=== PATIENT | female | born 1935 | race Hispanic/Latino ===

== ENCOUNTER 2018-05-14 11:35 | Observation (INO) | payer MEDICARE ==
[2018-05-14 11:37] VITALS: BMI 23.8
--- NOTE | 2018-05-14 12:04 | ED PDOC ---
Arrival/HPI - General Chief Complaint: Chest Pain Time Seen by Provider: 05/14/18 11:47 Historian: Patient - History of Present Illness Narrative History of Present Illness (Text): 05/14/18 12:03 A 82 year old female, whose past medical history includes CAD and AZ x 2, DNR, daughter and granddaughter translate in [place]ian. presents to the emergency department complaining of chest pain and shortness of breath since last night. Per family, they carried patient upstairs, and she complained of pain. Deny dropping patient at any point while carrying her. They believe she may have possibly injured herself, however daughter and granddaughter are uncertain. Patient denies any other complaints at this time. Denies history of smoking or alcohol consumption. PMD: Dr. Alves Associated Symptoms (Text): 05/14/18 13:25 Daughter translates and reports right-sided chest pain and shortness of breath since last night. They carried the patient upstairs and the patient began to co mplain of pain and shortness of breath afterwards. Daughter and granddaughter deny any injury. the patient speaks [place]ian and the daughter and granddaughter translate. Past Medical History - Provider Review Nursing Documentation Reviewed: Yes - Infectious Disease Hx of Infectious Diseases: None - Tetanus Immunization Tetanus Immunization: Unknown - Reproductive Menopause: Yes - Cardiac Hx AZ: Yes Hx Hypertension: Yes - Pulmonary Hx Respiratory Disorders: No - Neurological Hx Neurological Disorder: No - HEENT Hx HEENT Disorder: No - Renal Hx Renal Disorder: No - Endocrine/Metabolic Hx Hypothyroidism: Yes - Hematological/Oncological Hx Blood Disorders: No - Integumentary Hx Dermatological Disorder: No - Musculoskeletal/Rheumatological Hx Arthritis: Yes - Gastrointestinal Hx Gastroesophageal Reflux: Yes - Genitourinary/Gynecological Hx Genitourinary Disorders: No - Psychiatric Hx Psychophysiologic Disorder: No Hx Substance Use: No - Suicidal Assessment Feels Threatened In Home Enviroment: No Family/Social History - Physician Review Nursing Documentation Reviewed: Yes Family/Social History: No Known Family HX Smoking Status: Never Smoked Hx Alcohol Use: No Hx Substance Use: No Hx Substance Use Treatment: No Allergies/Home Meds Allergies/Adverse Reactions: Allergies codeine Allergy (Verified 05/14/18 11:41) RASH Penicillins Allergy (Verified 05/14/18 11:41) RASH Home Medications: Home Meds Medication Instructions Recorded Confirmed Carvedilol [Coreg] 3.125 mg PO DAILY 05/14/18 05/14/18 Cyanocobalamin [Vitamin B12 1000 1,000 mcg PO DAILY 05/14/18 05/14/18 mcg Tab] Docusate [Colace] 100 mg PO DAILY 05/14/18 05/14/18 Lanzoprazol 30 mg PO DAILY 05/14/18 Levothyroxine [Levoxyl] 0.15 mg PO DAILY 05/14/18 05/14/18 Simvastatin 10 mg PO DAILY 05/14/18 05/14/18 Review of Systems - Physician Review All systems were reviewed & negative as marked: Yes - Review of Systems Constitutional: Fatigue. absent: Fevers Respiratory: SOB. absent: Cough Cardiovascular: Chest Pain. absent: Palpitations, Syncope Gastrointestinal: Constipation. absent: Abdominal Pain, Diarrhea, Nausea, Vomiting Neurological: absent: Headache, Dizziness Physical Exam Temperature: Afebrile Blood Pressure: Normal Pulse: Regular Respiratory Rate: Normal Appearance: Positive for: Well-Appearing, Non-Toxic, Uncomfortable Pain Distress: Mild Mental Status: Positive for: other (Awake alert and uncomfortable) - Systems Exam Head: Present: Atraumatic, Normocephalic Pupils: Present: PERRL Extroacular Muscles: Present: EOMI Conjunctiva: Present: Normal Mouth: Present: Moist Mucous Membranes Neck: Present: Normal Range of Motion Respiratory/Chest: Present: Clear to Auscultation, Good Air Exchange, Decreased Breath Sounds, Tender to Palpation (Right-sided chest wall tenderness). No: Respiratory Distress, Accessory Muscle Use Cardiovascular: Present: Regular Rate and Rhythm, Normal S1, S2. No: Murmurs Abdomen: Present: Other (right anterior lateral ribs tenderness). No: Tenderness, Distention, Peritoneal Signs, Rebound, Guarding Back: Present: Normal Inspection Upper Extremity: Present: Normal Inspection. No: Cyanosis, Edema Lower Extremity: Present: Normal Inspection. No: Edema Neurological: Present: GCS=15, CN II-XII Intact, Speech Normal, Motor Func Grossly Intact Skin: Present: Warm, Dry, Normal Color. No: Rashes Psychiatric: Present: Alert, Oriented x 3, Normal Insight, Normal Concentration Medical Decision Making ED Course and Treatment: 05/14/18 12:10 Impression: 82 year old female with chest pain and shortness of breath Plan: -- EKG -- Aspirin -- Toradol -- Chest X-ray -- Labs -- Reassess and disposition Progress Notes: 05/14/18 13:27 EKG shows normal sinus rhythm with his poor R waves and a nonspecific intraventricular conduction delay and no acute ST or T wave changes. 05/14/18 13:27 And , the radiologist, called and reported that the patient had free air under the diaphragm. She requested a stat CT scan of the abdomen and pelvis. Stat CT scan of the abdomen and pelvis was ordered and read by , but there was no free air on the CT scan. 05/14/18 13:54 Family reports that the chest pain has improved post aspirin and Toradol. She only has pain with movement at this time. 05/14/18 14:01 Discussed in detail with Dr.E Alves who will place on a telemetry observation bed and consult with . I am unsure if this represents musculoskeletal chest pain or cardiac chest pain. Very difficult to assess with the language barrier. - RAD Interpretation Radiology Orders: 05/14/18 11:58 CHEST PORTABLE [RAD] Stat - Medication Orders Current Medication Orders: Aspirin (Aspirin) 325 mg PO STAT STA Stop: 05/14/18 11:57 Ketorolac Tromethamine (Toradol) 15 mg IVP ONCE ONE Stop: 05/14/18 11:59 - Scribe Statement The provider has reviewed the documentation as recorded by the Emiliano Mckinney Provider Scribe Attestation: All medical record entries made by the Scribe were at my direction and personall y dictated by me. I have reviewed the chart and agree that the record accurately reflects my personal performance of the history, physical exam, medical decision making, and the department course for this patient. I have also personally directed, reviewed, and agree with the discharge instructions and disposition. Disposition/Present on Arrival - Present on Arrival Any Indicators Present on Arrival: No History of DVT/PE: No History of Uncontrolled Diabetes: No Urinary Catheter: No History of Decub. Ulcer: No History Surgical Site Infection Following: None - Disposition Have Diagnosis and Disposition been Completed?: Yes Diagnosis: Chest pain, Dyspnea Disposition: HOSPITALIZED Disposition Time: 14:02 Patient Plan: Observation, Telemetry Patient Problems: Current Active Problems Problem Status Onset Chest pain Acute Dyspnea Acute Condition: FAIR
--- NOTE | 2018-05-14 12:39 | RAD ---
HISTORY: cp COMPARISON: None available. TECHNIQUE: Chest, one view. FINDINGS: Examination limited by habitus and hypoinflation. LUNGS: Discoid atelectasis, bilateral lung bases. PLEURA: No significant pleural effusion identified. No definite pneumothorax . CARDIOVASCULAR: Cardiomegaly. Ectatic aorta. Atherosclerotic calcifications. OSSEOUS STRUCTURES: No acute osseous abnormality identified. VISUALIZED UPPER ABDOMEN: Extensive lucency beneath the left hemidiaphragm consistent with free air; correlate for perforated viscus. OTHER FINDINGS: None. IMPRESSION: Extensive lucency beneath the left hemidiaphragm consistent with free air; correlate for perforated viscus. Discoid atelectasis bilateral lung bases. Findings discussed with Dr. Wilson on 05/14/18 at 12:33 p.m.
[2018-05-14 12:46] LABS: BASO # 0.01 K/mm3 (0.0-2.0); BASO % 0.2 % (0.0-3.0); EOS # 0.1 (0.0-0.7); EOS % 1.9 % (1.5-5.0); HEMOGLOBIN 13.3 g/dL (12.0-16.0); LYMPH # 0.9 (1.2-3.4); LYMPH % 19.3 % (22.0-35.0); MEAN CELL VOLUME 110.9 fl (80.0-105.0); MEAN CORPUSCULAR HGB CONC 33.4 g/dl (31.0-37.0); MEAN PLATELET VOLUME 9.7 fl (7.0-11.0); MONO # 0.6 (0.1-0.6); MONO % 11.6 % (1.0-6.0); RBC 3.59 10^6/uL (3.5-6.1); RED CELL DISTRIBUTION WIDTH 12.3 % (11.5-14.5); WHITE BLOOD COUNT 4.8 10^3/uL (4.5-11.0)
[2018-05-14 13:29] LABS: ALB/GLOB RATIO 1.2 (1.1-1.8); ALBUMIN 2.9 g/dL (3.0-4.8); ALT/SGPT 22 U/L (7-56); AST/SGOT 35 U/L (14-36); BLOOD UREA NITROGEN 17 mg/dL (7-21); CALCIUM 7.9 mg/dL (8.4-10.5); GFR NON-AFRICAN AMERICAN > 60
[2018-05-14 13:41] LABS: B-TYPE NATRIURETIC PEPTIDE 357 pg/mL (0-450); TROPONIN I < 0.01 ng/mL
--- NOTE | 2018-05-14 13:45 | CT ---
PROCEDURE: CT Abdomen and Pelvis without Oral or IV contrast. HISTORY: free air COMPARISON: Chest x-ray performed earlier the same day. TECHNIQUE: Contiguous axial images of the abdomen and pelvis. No oral or IV contrast administered. Coronal and Sagittal reformats generated and reviewed. Radiation dose: Total exam DLP = 565.19 mGy-cm. This CT exam was performed using one or more of the following dose reduction techniques: Automated exposure control, adjustment of the mA and/or kV according to patient size, and/or use of iterative reconstruction technique. FINDINGS: There is limited evaluation of the solid organs without the administration of IV contrast. LOWER THORAX: Bibasilar scarring and atelectasis. No visible pleural effusion or pneumothorax. LIVER: Unremarkable unenhanced appearance. GALLBLADDER AND BILE DUCTS: Contracted state of gallbladder. PANCREAS: Unremarkable unenhanced appearance. SPLEEN: Unremarkable unenhanced appearance. ADRENALS: Bilateral adrenal gland hypertrophy. KIDNEYS AND URETERS: No hydronephrosis or obstructing renal calculus. BLADDER: The urinary bladder appears unremarkable. REPRODUCTIVE: Uterus is not well seen and appears atrophic. APPENDIX: The appendix appears within normal limits of caliber. No secondary signs of acute appendicitis. BOWEL: The stomach is distended with air and fluid. Dependent oral contrast versus calcification at the gastric fundus. Lack of oral contrast limits evaluation for bowel pathology. The bowel loops appear within normal limits of caliber without evidence of intestinal obstruction. Moderate constipation. PERITONEUM: No significant free fluid. No definite free air. LYMPH NODES: No bulky lymphadenopathy identified. VASCULATURE: Atherosclerotic calcifications aorta. No aortic aneurysm. BONES: Osseous demineralization. Multilevel degenerative changes. Loss of height of several vertebral body levels consistent with age indeterminate compression fractures. OTHER FINDINGS: None. IMPRESSION: No definite free air. Moderate constipation. The stomach is distended with air and fluid. Dependent oral contrast versus calcification at the gastric fundus. Bilateral adrenal gland hypertrophy. Bibasilar scarring and atelectasis. Additional incidental findings as above.
--- NOTE | 2018-05-14 14:35 | CARD ---
APPROVED REPORT Date of service: 05/14/2018 EKG Measurement Heart [id number] <Conclusion> Normal sinus rhythm Left axis deviation Septal infarct, age undetermined Abnormal ECG
[2018-05-14] MEDS ORDERED: Magnesium Hydroxide Susp 30 ml UD PO STA (14:37)
[2018-05-14] MEDS ORDERED: Enoxaparin 60 mg Syringe SC STA (18:34)
[2018-05-14 19:15] LABS: HDL CHOLESTEROL 41 mg/dL (29-60)
[2018-05-14 19:26] LABS: TROPONIN I < 0.01 ng/mL
[2018-05-14 19:28] LABS: LDL CHOLESTEROL < 30 mg/dL (0-129)
[2018-05-15 08:19] LABS: ALB/GLOB RATIO 1.1 (1.1-1.8); ALBUMIN 2.9 g/dL (3.0-4.8); ALT/SGPT 23 U/L (7-56); AST/SGOT 36 U/L (14-36); BLOOD UREA NITROGEN 15 mg/dL (7-21); CALCIUM 7.7 mg/dL (8.4-10.5); GFR NON-AFRICAN AMERICAN > 60
[2018-05-15 08:22] LABS: TROPONIN I < 0.01 ng/mL
[2018-05-15] MEDS: Sodium Chloride 0.9% 1,000 ML IV SCH ×2 (09:08→21:42)
[2018-05-15] MEDS: Enoxaparin 30 mg Syringe SC SCH (09:09)
[2018-05-15] MEDS ORDERED: POLYETHYLENE GLYCOL 3350 17 GM/Dose PACKET PO ONE (10:33)
[2018-05-15] MEDS: Pantoprazole 40 mg EC Tab PO SCH (11:04)
[2018-05-15] MEDS: Levothyroxine 150 MCG TAB PO SCH (11:04)
[2018-05-15] MEDS: Nitroglycerin 2% Ointment Foilpak UD TOP SCH ×2 (12:43→17:39)
--- NOTE | 2018-05-15 15:32 | CARD ---
APPROVED REPORT Date of service: 05/15/2018 EXAM: Two-dimensional and M-mode echocardiogram with Doppler and color Doppler. INDICATION Chest Pain 2D DIMENSIONS Left Atrium (2D)3.7 (1.6-4.0cm)IVSd1.2 (0.7-1.1cm) LVDd3.2 (3.9-5.9cm)PWd1.1 (0.7-1.1cm) LVDs2.4 (2.5-4.0cm)FS (%) 24.5 % LVEF (%)49.9 (>50%) M-Mode DIMENSIONS Aortic Root2.60 (2.2-3.7cm)Aortic Cusp Exc.1.70 (1.5-2.0cm) Aortic Valve AoV Peak Qmrjhynf063.0cm/Regina Peak GR.7mmHg Mitral Valve MV E Ondqautq80.7cm/sMV A Essrgimk356.0cm/sE/A ratio0.7 TDI E/Lateral E'0.0E/Medial E'0.0 Tricuspid Valve TR Peak Vuhvojiz751hf/sRAP [id number] Peak Gr.25mmHg [id number] LEFT VENTRICLE The Left Ventricle is mildly dilated. There is borderline concentric left ventricular hypertrophy. Left ventricle ejection fraction is low normal.EF-45-50% There is mild to moderate hypokinesis in the apical anterior wall. Transmitral Doppler flow pattern is Grade III-reversible restrictive diastolic dysfunction. No left ventricle thrombus noted on this study. There is no ventricular septal defect visualized. There is no left ventricular aneurysm. There is no mass noted in the left ventricle. RIGHT VENTRICLE The right ventricle is normal size. There is normal right ventricular wall thickness. The right ventricular systolic function is normal. ATRIA The left atrium is borderline dilated., in long axis. The right atrium size is normal. The interatrial septum is intact with no evidence for an atrial septal defect. AORTIC VALVE The aortic valve is thickened but opens well. There is trace aortic regurgitation. There is no aortic valvular stenosis. There is no aortic valvular vegetation. MITRAL VALVE The mitral valve is thickened but opens well. Mitral regurgitation is mild. There is no mitral valve stenosis. There is no evidence of mitral valve prolapse. TRICUSPID VALVE The tricuspid valve leaflets are thickened , but open well. There is mild tricuspid regurgitation.RVSP-35 mmof hg. There is no tricuspid valve stenosis. There is no tricuspid valve prolapse or vegetation. PULMONIC VALVE The pulmonary valve is normal in structure. There is trace pulmonic valvular regurgitation. There is no pulmonic valvular stenosis. GREAT VESSELS The aortic root is normal in size. The ascending aorta is normal in size. The pulmonary artery is normal. The IVC is normal in size and collapses >50% with inspiration. PERICARDIAL EFFUSION There is no pleural effusion. Trivial PE <Conclusion> The Left Ventricle is mildly dilated. There is borderline concentric left ventricular hypertrophy. Left ventricle ejection fraction is low normal.EF-45-50% There is mild to moderate hypokinesis in the apical anterior wall. There is trace aortic regurgitation. Mitral regurgitation is mild. There is mild tricuspid regurgitation.RVSP-35 mmof hg. There is trace pulmonic valvular regurgitation. The IVC is normal in size and collapses >50% with inspiration. Trivial PE. No Vegetation or thrombus noted.
--- NOTE | 2018-05-15 21:09 | CON ---
DATE: 05/15/2018 CONSULT SERVICE: Cardiology. REASON FOR CONSULTATION: Cardiac evaluation, history of coronary artery disease, history of CA 20 years ago, and admitted with chest pain. BRIEF CLINICAL HISTORY: This is an 82-year-old female with past medical history significant for massive CA 20 years ago, admitted to [facility] and transferred to [facility] where the patient had a stent, since the patient remained stable, and came in yesterday with chest pain, which is very reproducible and severe tenderness on the chest. The patient speaks Georgian, unable to get any history, but information obtained from the daughter and the granddaughter, named Scarlet, which is an RN, her telephone number [phone]. They wanted to be treated the patient medically. The patient is bed bound and wanted to get medical treatment. PAST MEDICAL HISTORY: Significant for coronary artery disease, hypothyroidism, hyperlipidemia, and hypertension. SOCIAL HISTORY: Denies smoking. Denies any history of alcohol abuse. PAST SURGICAL HISTORY: Only procedure she had CA 20 years ago and had two stents in [place] after having massive CA. REVIEW OF SYSTEMS: As per HPI. PHYSICAL EXAMINATION: VITAL SIGNS: As follows; height of the patient 5 feet 2 inches, weight of the patient 108 pounds, and body mass index 19.9 kg/m2. Temperature afebrile, heart rate 74, and blood pressure 129/73. HEENT: PERRLA. Extraocular muscles intact. NECK: Supple. No carotid bruits or thyromegaly. CHEST: Clear to auscultation. HEART: S1 and S2 regular. ABDOMEN: Soft. EXTREMITIES: Clubbing and cyanosis negative. LABORATORY DATA: Blood workup as follows; WBC 4.8, hemoglobin 13.3, hematocrit 39.8, and platelet count 209. Chemistry shows sodium 120, potassium 4.7, chloride 90, carbon dioxide 26, anion gap of 9, BUN 15, and creatinine 0.3. Troponin 0.01 x3 negative. Chest wall is very tender. IMPRESSION AND PLAN: An 82-year-old female with past medical history of hypertension, hyperlipidemia, history of coronary artery disease, status post stent 20 year ago where the patient admitted with myocardial infarction, admitted with chest pain, very tender. So far, no evidence of acute myocardial infarction. Discussed with the patient's daughter and the patient's granddaughter, named Scarlet on telephone number [phone], wanted to be treated medically. Agreed to get an echocardiogram done. We will continue Coreg. We will continue aspirin. Continue deep venous thrombosis prophylaxis enoxaparin and we will agree with Dr. Alves for ibuprofen because of very severe tenderness on the chest. We will follow with you. Further recommendation depending upon the hospital course. We will get lipid profile, thyroid stimulating hormone, hemoglobin A1c as well added on the lab today. Further recommendations will be made upon the patient's hospital course. If the blood pressure can be tolerated, we will put low dose of nitroglycerin that is Imdur long-acting nitrate Imdur. Admitting the patient's EKG shows normal sinus, left axis deviation, poor RR progression consistent with septal myocardial infarction of undetermined age, but no acute ST-T changes noted. We will change aspirin to baby aspirin everyday and deep venous thrombosis prophylaxis 30 mg of atorvastatin. Continue Coreg 3.125 mg, atorvastatin 80 mg with half an inch of paste and they will start Imdur 30 mg from tomorrow. We will holding parameters. If the patient tolerates nitroglycerin paste, we will start Imdur from tomorrow. Follow up mag phosphate in the morning and BMP. We will change the IV fluid to the normal saline and monitor electrolytes in the morning. Thank you Dr. Alves for providing us the opportunity in taking care of the patient, Sandy Yan. Charlene Umana MD
[2018-05-16 07:11] VITALS: RESP 20; O2SAT 98
[2018-05-16 07:15] LABS: HEMOGLOBIN 11.8 g/dL (12.0-16.0); MEAN CORPUSCULAR HEMOGLOBIN 36.8 pg (25.0-35.0); MEAN CORPUSCULAR HGB CONC 33.4 g/dl (31.0-37.0); MEAN PLATELET VOLUME 9.4 fl (7.0-11.0); RBC 3.21 10^6/uL (3.5-6.1); RED CELL DISTRIBUTION WIDTH 12.3 % (11.5-14.5); WHITE BLOOD COUNT 2.8 10^3/uL (4.5-11.0)
[2018-05-16 07:38] LABS: ALBUMIN 2.5 g/dL (3.0-4.8); ALT/SGPT 27 U/L (7-56); AST/SGOT 35 U/L (14-36); BLOOD UREA NITROGEN 12 mg/dL (7-21); CALCIUM 7.2 mg/dL (8.4-10.5); GFR NON-AFRICAN AMERICAN > 60
--- NOTE | 2018-05-16 09:27 | RAD ---
Date of service: 05/15/2018 PROCEDURE: Radiographs of the Chest and Right Ribs. HISTORY: pain COMPARISON: None available. TECHNIQUE: Frontal radiograph of the chest and multiple oblique radiographs of the right ribs were obtained. FINDINGS: RIGHT RIBS: No rib fracture identified. LUNGS: Linear scar/atelectasis at both lung bases. No infiltrate. PLEURA: No pneumothorax or pleural fluid. CARDIOVASCULAR: Normal cardiac size. No pulmonary vascular congestion. No aortic atherosclerotic calcification present OTHER FINDINGS: Chronic right rotator cuff insufficiency with superior subluxation of the humeral head and remodeling of the underside of the right acromion. IMPRESSION: No evidence of right rib fracture. Bibasilar linear scar/atelectasis.
[2018-05-16] MEDS: Enoxaparin 30 mg Syringe SC SCH (09:44)
[2018-05-16] MEDS: Pantoprazole 40 mg EC Tab PO SCH (09:44)
[2018-05-16] MEDS: Levothyroxine 150 MCG TAB PO SCH (09:45)
[2018-05-16] MEDS: Sodium Chloride 0.9% 1,000 ML IV SCH (09:45)
[2018-05-16 13:23] VITALS: BP 96/60; PULSE 77; TEMP 97.9
--- NOTE | 2018-05-16 15:47 | PN ---
DATE: 05/16/2018 REASON FOR CONSULTATION AND FOLLOWUP: Cardiac evaluation, history of coronary artery disease, history of NV, admitted with chest pain; musculoskeletal. SUBJECTIVE: The patient denies any chest pain, shortness of breath, or any palpitations. PHYSICAL EXAMINATION: GENERAL: Not in apparent distress. VITAL SIGNS: Temperature afebrile, heart rate 68, blood pressure 144/77. HEENT: PERRLA. Extraocular muscles intact. NECK: Supple. No carotid bruits. No thyromegaly. CHEST: Clear to auscultation. HEART: S1 and S2 regular. ABDOMEN: Soft. EXTREMITIES: Clubbing and cyanosis, negative. LABORATORY DATA: Blood workup as follows. WBC 2.8, hemoglobin 11.8, hematocrit 35.3, platelet count 173. Chemistries show sodium 127, potassium 4, chloride 101, carbon dioxide 23, anion gap of 18, BUN 12 and creatinine 0.2. Total protein 4.9, albumin 2.5, albumin-globulin ratio 1. IMPRESSION: An 82-year-old female with past medical history significant for coronary artery disease status post massive myocardial infarction, status post primary angioplasty 20 years ago at [facility]. This time came in with chest pain, atypical with tenderness. So far no evidence of acute myocardial infarction. History of anemia, appears to be pancytopenia, leukopenia and platelet count of 173, mildly anemic. The patient so far has no evidence of acute myocardial infarction. The patient yesterday had echocardiography done that revealed ejection 45% to 50%, mild to moderate hypokinesis apical and anterior wall consistent with previous myocardial infarction. Mild mitral regurgitation, mild tricuspid regurgitation. Discussed with the daughter and granddaughter; granddaughter is a nurse named Scarlet wanted it to be treated medically. RECOMMENDATION: Continue Coreg 3.125 mg. Will start Imdur. Continue DVT prophylaxis. Continue baby aspirin. We will discontinue telemetry. Medical treatment; so far no evidence of acute NV. Agree with Dr. Alves to continue NSAID. Chest pain significantly improved with NSAID. Thank you Dr. Alves for providing us the opportunity in taking care of patient Sandy Yan. Charlene Umana MD
== END 2018-05-16 13:22 | disposition home or self-care (01) ==
LOC: ED 11:35 → ERH 14:32 → 2RSO 16:50
PROVIDERS: ADMIT Internal Medicine; ATTEND Internal Medicine
DX: R07.89 Other chest pain (principal); I25.10 Atherosclerotic heart disease of native coronary artery without angina pectoris; I25.2 Old myocardial infarction; I10 Essential (primary) hypertension; E78.5 Hyperlipidemia, unspecified; E03.9 Hypothyroidism, unspecified; K21.9 Gastro-esophageal reflux disease without esophagitis; Z66 Do not resuscitate; Z74.01 Bed confinement status; Z95.5 Presence of coronary angioplasty implant and graft
CPT/HCPCS: 36415; 71045; 71101; 74176; 80053; 80061; 82550; 83036; 83615; 83735; 83880; 84100; 84443; 84484; 85025; 85027; 93005; 93306; 96372; 96374; 99285; G0378; J1650; J1885; J7030

== ENCOUNTER 2018-07-20 18:57 | Observation (INO) | payer MEDICARE ==
[2018-07-20 18:57] VITALS: BMI 23.8
[2018-07-20] MEDS ORDERED: Sodium Chloride 0.9% 1,000 ML IV STA (19:29)
--- NOTE | 2018-07-20 19:38 | ED PDOC ---
Arrival/HPI - General Chief Complaint: Abdominal Pain Time Seen by Provider: 07/20/18 19:20 Historian: Patient, Family (daughter) - History of Present Illness Narrative History of Present Illness (Text): 07/20/18 19:20 Sandy Yan is an 82 year old female, with a past medical history of CAD and CT x 2, brought to the ED by EMS for diffuse abdominal pain. Per daughter, patient was home by herself and pressed her life alert. Daughter informs patient frequently complains of abdominal pain but notes today is worse. Per daughter, patient has multiple bowel movements a day and appreciates no change to bowel habits. Patient denies fevers, chills, headache, dizziness, nausea, vomiting, diarrhea, dysuria, hematuria, bowel / urinary incontinence, or any other complaints. Time/Duration: Prior to Arrival Symptom Onset: Sudden Symptom Course: Unchanged Activities at Onset: Light Context: Home Past Medical History - Provider Review Nursing Documentation Reviewed: Yes - Infectious Disease Hx of Infectious Diseases: None - Tetanus Immunization Tetanus Immunization: Unknown - Cardiac Hx Cardiac Disorders: Yes Hx CT: Yes (x3) Hx Hypertension: Yes - Pulmonary Hx Respiratory Disorders: No - Neurological Hx Neurological Disorder: Yes Hx Dementia: Yes - HEENT Hx HEENT Disorder: No - Renal Hx Renal Disorder: No - Endocrine/Metabolic Hx Endocrine Disorders: Yes Hx Hypothyroidism: Yes - Hematological/Oncological Hx Blood Disorders: No - Integumentary Hx Dermatological Disorder: No - Musculoskeletal/Rheumatological Hx Falls: No - Gastrointestinal Hx Gastrointestinal Disorders: Yes Hx Gastroesophageal Reflux: Yes - Genitourinary/Gynecological Hx Genitourinary Disorders: No - Psychiatric Hx Psychophysiologic Disorder: No Hx Substance Use: No - Surgical History Hx Coronary Stent: Yes - Suicidal Assessment Feels Threatened In Home Enviroment: No Family/Social History - Physician Review Nursing Documentation Reviewed: Yes Family/Social History: Unknown Family HX Smoking Status: Never Smoked Hx Alcohol Use: No Hx Substance Use: No Hx Substance Use Treatment: No Allergies/Home Meds Allergies/Adverse Reactions: Allergies codeine Allergy (Verified 07/21/18 00:46) RASH Penicillins Allergy (Verified 07/21/18 00:46) RASH Home Medications: Home Meds Medication Instructions Recorded Confirmed Carvedilol [Coreg] 3.125 mg PO DAILY 05/14/18 07/21/18 Cyanocobalamin [Vitamin B12 1000 1,000 mcg PO DAILY 05/14/18 07/21/18 mcg Tab] Docusate [Colace] 100 mg PO DAILY 05/14/18 07/21/18 Lanzoprazol 30 mg PO DAILY 05/14/18 07/21/18 Levothyroxine [Synthroid] 0.15 mg PO DAILY 05/14/18 07/21/18 Simvastatin 10 mg PO DAILY 05/14/18 07/21/18 Review of Systems - Physician Review All systems were reviewed & negative as marked: Yes - Review of Systems Constitutional: absent: Fevers, Other (chills) Gastrointestinal: Abdominal Pain (diffuse). absent: Diarrhea, Nausea, Vomiting, Other (bowel incontinence, changes in bowel habits) Genitourinary Female: absent: Dysuria, Hematuria, Other (urinary incontinence) Neurological: absent: Headache, Dizziness Physical Exam Vital Signs Reviewed: Yes Vital Signs Temp Pulse Resp BP Pulse Ox 07/20/18 19:19 97.5 F L 99 H 22 111/64 97 Temperature: Afebrile Blood Pressure: Normal Pulse: Tachycardic Respiratory Rate: Normal Appearance: Positive for: Well-Appearing, Non-Toxic, Comfortable, Other (eyes closed but opens eyes when voicing answers to questions) Pain Distress: None Mental Status: Positive for: Alert and Oriented X 3 - Systems Exam Head: Present: Atraumatic, Normocephalic Pupils: Present: PERRL Extroacular Muscles: Present: EOMI Conjunctiva: Present: Normal Mouth: Present: Moist Mucous Membranes Neck: Present: Normal Range of Motion Respiratory/Chest: Present: Clear to Auscultation, Good Air Exchange. No: Respiratory Distress, Accessory Muscle Use, Wheezes, Rales, Rhonchi Cardiovascular: Present: Regular Rate and Rhythm, Normal S1, S2. No: Murmurs, Rub, Gallop Abdomen: Present: Tenderness (diffuse), Distention (slightly distended, but soft), Normal Bowel Sounds. No: Peritoneal Signs, Rebound, Guarding Back: Present: Normal Inspection Upper Extremity: Present: Normal Inspection, Normal ROM, Neurovascularly Intact. No: Cyanosis, Edema Lower Extremity: Present: Normal Inspection, Normal ROM, Neurovascularly Intact. No: Edema Neurological: Present: GCS=15, CN II-XII Intact, Speech Normal Skin: Present: Warm, Dry, Normal Color. No: Rashes Psychiatric: Present: Alert, Oriented x 3, Normal Insight, Normal Concentration Medical Decision Making ED Course and Treatment: 07/20/18 19:20 Impression: Sandy Yan is an 82 year old female, with a past medical history of CAD and CT x 2, brought to the ED by EMS for diffuse abdominal pain. Plan: -- CT Abdomen/Pelvis with IV Contrast -- Labs -- IV Fluids -- Toradol -- Reassess and disposition Prior Visits: Notes and results from previous visits were reviewed. Progress Notes: Patient given toradol for pain. 07/20/18 23:39 Abd/Pelvis CT IMPRESSION: 1. Some of the small bowel loops in the left abdomen appear slightly prominent and fluid-filled with enhancement of the wall measuring up to 3.6 cm. More distal loops appear slightly decompressed. Possible fecalization and some more distal loops. Please correlate for the possibility of early or partial small bowel obstruction or even vascular compromise. 2. Again seen is constipation in the colon, which appears slightly worse currently than on the May study. 3. Bladder is distended. This is more prominent than on the May study. 4. Additional, incidental findings as described above. 5. These findings are being telephoned to the referring clinicians at the time of interpretation. Dictator: David Garcia MD Patient given morphine ivp for continued pain. Lab and CT results discussed with patient and daughter. Amenable to admission for possible early SBO. Case discussed with Dr. Val Alves, patient's PMD. Accepts patient for admission to his service. Would like Dr. Gibbs consulted for GI. - RAD Interpretation Radiology Orders: 07/20/18 19:29 ABD PELVIS PO & IV CONTRAST [CT] Stat - EKG Interpretation EKG Interpretation (Text): 07/20/18 19:18 Reviewed EKG, shows: Sinus Tachycardia at 101 BPM. LAD. Normal Intervals. No ST elevations. Interpreted by ED Physician: Yes Type: 12 lead EKG - Medication Orders Current Medication Orders: Sodium Chloride (Sodium Chloride 0.9%) 1,000 mls @ 999 mls/hr IV .Q1H1M STA Stop: 07/20/18 20:29 Discontinued Medications Ketorolac Tromethamine (Toradol) 30 mg IVP STAT STA Stop: 07/20/18 19:30 - Scribe Statement The provider has reviewed the documentation as recorded by the Scribe Olegario Pina All medical record entries made by the Scribe were at my direction and personally dictated by me. I have reviewed the chart and agree that the record accurately reflects my personal performance of the history, physical exam, medical decision making, and the department course for this patient. I have also personally directed, reviewed, and agree with the discharge instructions and disposition. Disposition/Present on Arrival - Present on Arrival Any Indicators Present on Arrival: No History of DVT/PE: No History of Uncontrolled Diabetes: No Urinary Catheter: No History of Decub. Ulcer: No History Surgical Site Infection Following: None - Disposition Have Diagnosis and Disposition been Completed?: Yes Diagnosis: Abdominal pain, Small bowel obstruction Disposition: HOSPITALIZED Disposition Time: 00:00 Condition: STABLE
[2018-07-20 20:06] LABS: BASO # 0.02 K/mm3 (0.0-2.0); BASO % 0.4 % (0.0-3.0); EOS % 0.8 % (1.5-5.0); LYMPH # 1.4 (1.2-3.4); LYMPH % 27.9 % (22.0-35.0); MEAN CELL VOLUME 112.6 fl (80.0-105.0); MEAN CORPUSCULAR HEMOGLOBIN 38.5 pg (25.0-35.0); MEAN CORPUSCULAR HGB CONC 34.1 g/dl (31.0-37.0); MEAN PLATELET VOLUME 9.3 fl (7.0-11.0); MONO # 0.6 (0.1-0.6); MONO % 13.1 % (1.0-6.0); RBC 3.64 10^6/uL (3.5-6.1); RED CELL DISTRIBUTION WIDTH 12.8 % (11.5-14.5); WHITE BLOOD COUNT 4.9 10^3/uL (4.5-11.0)
[2018-07-20 20:18] LABS: ALB/GLOB RATIO 1.1 (1.1-1.8); ALBUMIN 2.9 g/dL (3.0-4.8); ALT/SGPT 28 U/L (7-56); AST/SGOT 38 U/L (14-36); BLOOD UREA NITROGEN 14 mg/dL (7-21); CALCIUM 7.8 mg/dL (8.4-10.5); GFR NON-AFRICAN AMERICAN > 60; LIPASE 140 U/L (23-300)
[2018-07-20] MEDS ORDERED: Iohexol 240 (50 ml) ONE (20:26)
[2018-07-20] MEDS ORDERED: Iohexol 350 MG/100 ML VIAL ONE (22:22)
[2018-07-21] MEDS ORDERED: Morphine 2 mg/ml ISec ONE (00:11)
[2018-07-21] MEDS ORDERED: Morphine 2 mg/ml ISec IVP STA (00:17)
--- NOTE | 2018-07-21 07:54 | CP.PCM.CON ---
<Titus Baxter - Last Filed: 07/21/18 18:54> History of Present Illness - History of Present Illness History of Present Illness: Titus Baxter Internal Medicine Resident- Consult Note on Behalf of Dr. Gibbs Subjective: CC: abdominal pain HPI: Patient is a 82 year old female with a past medical history of CAD and ID x 2, hypothyroidism, hypertension, hyperlipidemia who was admitted for evaluation and treatment of abdominal pain. GI team was consulted for management/recs on potential SBO. Patient seen and examined at bedside. States that she is no longer experiencing abdominal pain. Admits to constipation with hard bowel movements every 2-3 days. Denies nausea, vomiting, diarrhea, blood in stools, black stools, and change in caliber/consistency of stools. Further denies fever, chills, chest pain, SOB. 12 Point ROS negative except as indicated above PMHx: CAD and ID x 2, hypothyroidism, hypertension, hyperlipidemia PSHx: PCI two LAD stents Allergies: codeine, PCN Social Hx: denies tobacco use, denies ETOH use, denies illicit drug use Family Hx: denies Medications- please see MAR Physical Examination: - Constitutional Appears: Well, Non-toxic, No Acute Distress - Head Exam Head Exam: NORMAL INSPECTION, NORMOCEPHALIC - Eye Exam Eye Exam: EOMI, Normal appearance - ENT Exam ENT Exam: Mucous Membranes Moist, Normal Exam - Neck Exam Neck exam: Positive for: Normal Inspection - Respiratory Exam Respiratory Exam: Clear to Auscultation Bilateral, NORMAL BREATHING PATTERN - Cardiovascular Exam Cardiovascular Exam: +S1, +S2, Systolic Murmur - GI/Abdominal Exam GI & Abdominal Exam: soft, nontender, no guarding, no rebound tenderness - Extremities Exam Extremities exam: Positive for: normal inspection. Negative for: calf tenderness, pedal edema - Neurological Exam Neurological exam: Alert, awake, responds to verbal stimuli, follows commands - Psychiatric Exam Psychiatric exam: Normal Affect, Normal Mood - Skin Skin Exam: Dry, Intact, Warm Assessment and Plan: Patient is a 82 year old female with a past medical history of CAD, ID x 2, hypothyroidism, hypertension, hyperlipidemia who was admitted for evaluation and treatment of abdominal pain. Abdominal pain- Constipation, SBO Hx of CAD ID x2 Hypothyroidism Hypertension Hyperlipidemia 07/20/2018 Abdomen/pelvis CT 1. Some of the small bowel loops in the left abdomen appear slightly prominent and fluid-filled with enhancement of the wall measuring up to 3.6 cm. More distal loops appear slightly decompressed. Possible fecalization and some more distal loops. Please correlate for the possibility of early or partial small bowel obstruction or even vascular compromise. 2. Again seen is constipation in the colon, which appears slightly worse current ly than on the May study. 3. Bladder is distended. This is more prominent than on the May study. - continue liquid diet - continue IVF NS @100cc/hr - continue colace - continue protonix - recommend general surgery consult for SBO, started patient on dolcolax and fleet enema x 1 - if not bowel movement depsite current bowel regimen recommend starting miralax Patient seen, case reviewed with, and plan approved by attending physician, Dr. Gibbs Past Patient History - Infectious Disease Hx of Infectious Diseases: None - Tetanus Immunizations Tetanus Immunization: Unknown - Past Social History Smoking Status: Never Smoked - CARDIAC Hx Cardiac Disorders: Yes Hx Heart Attack: Yes (x3) Hx Hypertension: Yes - PULMONARY Hx Respiratory Disorders: No - NEUROLOGICAL Hx Neurological Disorder: Yes Hx Dementia: Yes - HEENT Hx HEENT Problems: No - RENAL Hx Chronic Kidney Disease: No - ENDOCRINE/METABOLIC Hx Endocrine Disorders: Yes Hx Hypothyroidism: Yes - HEMATOLOGICAL/ONCOLOGICAL Hx Blood Disorders: No - INTEGUMENTARY Hx Dermatological Problems: No - MUSCULOSKELETAL/RHEUMATOLOGICAL Hx Falls: No - GASTROINTESTINAL Hx Gastrointestinal Disorders: Yes Hx Gastroesophageal Reflux: Yes - GENITOURINARY/GYNECOLOGICAL Hx Genitourinary Disorders: No - PSYCHIATRIC Hx Psychophysiologic Disorder: No Hx Substance Use: No - SURGICAL HISTORY Hx Coronary Stent: Yes Meds Allergies/Adverse Reactions: Allergies Allergy/AdvReac Type Severity Reaction Status Date / Time codeine Allergy RASH Verified 07/21/18 00:46 Penicillins Allergy RASH Verified 07/21/18 00:46 Results - Vital Signs Recent Vital Signs: Last Vital Signs Temp 97.5 F L 07/20/18 19:19 Pulse 83 07/21/18 02:23 Resp 18 07/21/18 02:23 BP 124/90 07/21/18 01:24 Pulse Ox 97 07/21/18 01:24 - Labs Result Diagrams: 07/20/18 19:59 07/20/18 19:59 Labs: Laboratory Results - last 24 hr 07/20/18 07/20/18 19:59 19:59 WBC 4.9 D RBC 3.64 Hgb 14.0 D Hct 41.0 MCV 112.6 H MCH 38.5 H MCHC 34.1 RDW 12.8 Plt Count 257 MPV 9.3 Neut % (Auto) 57.8 Lymph % (Auto) 27.9 [place] % (Auto) 13.1 H Eos % (Auto) 0.8 L Baso % (Auto) 0.4 Lymph # (Auto) 1.4 [place] # (Auto) 0.6 Eos # (Auto) 0.0 Baso # (Auto) 0.02 Absolute Neuts (auto) 2.81 Sodium 128 L Potassium 4.6 Chloride 96 L Carbon Dioxide 27 Anion Gap 10 BUN 14 Creatinine 0.4 L Est GFR ( Amer) > 60 Est GFR (Non-Af Amer) > 60 Random Glucose 124 H Calcium 7.8 L Total Bilirubin 0.8 AST 38 H ALT 28 Alkaline Phosphatase 152 H D Total Protein 5.6 L Albumin 2.9 L Globulin 2.7 Albumin/Globulin Ratio 1.1 Lipase 140 <Dayanna Gibbs V - Last Filed: 07/22/18 00:32> Meds - Medications Medications: Current Medications Atorvastatin Calcium (Lipitor) 10 mg PO DIN [facility] Last Admin: 07/21/18 18:54 Dose: 10 mg Bisacodyl (Dulcolax) 10 mg RC DAILY [facility] Last Admin: 07/21/18 18:53 Dose: Not Given Carvedilol (Coreg) 3.125 mg PO DAILY [facility] Last Admin: 07/21/18 10:40 Dose: Not Given Cyanocobalamin (Vitamin B12 1000 Mcg Tab) 1,000 mcg PO DAILY [facility] Last Admin: 07/21/18 10:41 Dose: 1,000 mcg Docusate Sodium (Colace) 100 mg PO DAILY [facility] Last Admin: 07/21/18 10:39 Dose: 100 mg Hydromorphone HCl (Dilaudid) 0.5 mg IVP Q4H PRN PRN Reason: Pain, moderate (4-7) Last Admin: 07/21/18 23:49 Dose: 0.5 mg Sodium Chloride (Sodium Chloride 0.9%) 1,000 mls @ 100 mls/hr IV .Q10H [facility] Last Admin: 07/21/18 18:54 Dose: 100 mls/hr Levothyroxine Sodium (Synthroid) 150 mcg PO DAILY [facility] Last Admin: 07/21/18 10:41 Dose: 150 mcg Pantoprazole Sodium (Protonix Ec Tab) 40 mg PO DAILY [facility] Last Admin: 07/21/18 10:40 Dose: 40 mg Results - Vital Signs Recent Vital Signs: Last Vital Signs Temp 97.6 F 07/21/18 16:33 Pulse 68 07/21/18 16:33 Resp 19 07/21/18 16:33 BP 136/83 07/21/18 16:33 Pulse Ox 97 07/21/18 16:33 - Labs Result Diagrams: 07/20/18 19:59 07/20/18 19:59 Attending/Attestation - Attestation I have personally seen and examined this patient.: Yes I have fully participated in the care of the patient.: Yes I have reviewed all pertinent clinical information: Yes Notes (Text): This patient was seen and evaluated along with the resident earlier. This is an addendum to the GI consultation report dictated by the resident. CT scan was reviewed surgical note was reviewed . Agree with the Fleet Enema and a clinical follow-up 07/22/18 00:30
[2018-07-21] MEDS: HYDROmorphone 0.5 mg/0.5 ml ISec IVP PRN ×3 (08:32→23:49)
[2018-07-21] MEDS: Sodium Chloride 0.9% 1,000 ML IV SCH ×2 (09:01→18:54)
[2018-07-21] MEDS: Pantoprazole 40 mg EC Tab PO SCH (10:40)
[2018-07-21] MEDS: Levothyroxine 150 MCG TAB PO SCH (10:41)
--- NOTE | 2018-07-21 11:05 | CP.PCM.CON ---
History of Present Illness - History of Present Illness History of Present Illness: General Surgery Dr. Awad 82 y/o Scottish-speaking F w/ PMHx CAD, GA, dementia was brought in by EMS c/o abd pain. Pt has Hx of abd pain 2/2 constipation. In ED, pt underwent CTAP which showed continued constipation, slight worse compared to CTAP from 05/2018, w/ dilated loops small bowel and fecalization of distal small bowel 2/2 co nstipation vs possible (p)SBO. Surgery was consulted for possible (p)SBO. Pt seen and examined @bedside. Overnight, pt w/ multiple episodes of crying out. Otherwise no acute events. Pt recently medicated for pain w/ 0.5mg Dilaudid. Pt currently denies F/C, N/V, abd pain. Per nursing, pt has not yet had BM since admission overnight. PMHx: see above, HLD, HTN, hypothyroid, GERD, HH Meds: reviewed in chart ALL: codeine, PCN PSHx: PCI SHx: denies tobacco, EtOH drug use FHx: noncontributory Review of Systems - Review of Systems All systems: reviewed and no additional remarkable complaints except (see HPI) Past Patient History - Infectious Disease Hx of Infectious Diseases: None - Tetanus Immunizations Tetanus Immunization: Unknown - Past Social History Smoking Status: Never Smoked - CARDIAC Hx Cardiac Disorders: Yes Hx Heart Attack: Yes (x3) Hx Hypertension: Yes - PULMONARY Hx Respiratory Disorders: No - NEUROLOGICAL Hx Neurological Disorder: Yes Hx Dementia: Yes - HEENT Hx HEENT Problems: No - RENAL Hx Chronic Kidney Disease: No - ENDOCRINE/METABOLIC Hx Endocrine Disorders: Yes Hx Hypothyroidism: Yes - HEMATOLOGICAL/ONCOLOGICAL Hx Blood Disorders: No - INTEGUMENTARY Hx Dermatological Problems: No - MUSCULOSKELETAL/RHEUMATOLOGICAL Hx Falls: No - GASTROINTESTINAL Hx Gastrointestinal Disorders: Yes Hx Gastroesophageal Reflux: Yes - GENITOURINARY/GYNECOLOGICAL Hx Genitourinary Disorders: No - PSYCHIATRIC Hx Psychophysiologic Disorder: No Hx Substance Use: No - SURGICAL HISTORY Hx Coronary Stent: Yes Meds Allergies/Adverse Reactions: Allergies Allergy/AdvReac Type Severity Reaction Status Date / Time codeine Allergy RASH Verified 07/21/18 00:46 Penicillins Allergy RASH Verified 07/21/18 00:46 - Medications Medications: Current Medications Atorvastatin Calcium (Lipitor) 10 mg PO DIN [facility] Carvedilol (Coreg) 3.125 mg PO DAILY [facility] Last Admin: 07/21/18 10:40 Dose: Not Given Cyanocobalamin (Vitamin B12 1000 Mcg Tab) 1,000 mcg PO DAILY [facility] Last Admin: 07/21/18 10:41 Dose: 1,000 mcg Docusate Sodium (Colace) 100 mg PO DAILY [facility] Last Admin: 07/21/18 10:39 Dose: 100 mg Hydromorphone HCl (Dilaudid) 0.5 mg IVP Q4H PRN PRN Reason: Pain, moderate (4-7) Last Admin: 07/21/18 08:32 Dose: 0.5 mg Sodium Chloride (Sodium Chloride 0.9%) 1,000 mls @ 100 mls/hr IV .Q10H [facility] Last Admin: 07/21/18 09:01 Dose: 100 mls/hr Levothyroxine Sodium (Synthroid) 150 mcg PO DAILY [facility] Last Admin: 07/21/18 10:41 Dose: 150 mcg Pantoprazole Sodium (Protonix Ec Tab) 40 mg PO DAILY [facility] Last Admin: 07/21/18 10:40 Dose: 40 mg Physical Exam - Constitutional Appears: Non-toxic, No Acute Distress - Head Exam Head Exam: NORMAL INSPECTION - Eye Exam Eye Exam: Normal appearance - ENT Exam ENT Exam: Mucous Membranes Moist - Respiratory Exam Respiratory Exam: NORMAL BREATHING PATTERN. absent: Accessory Muscle Use, Respiratory Distress - Cardiovascular Exam Cardiovascular Exam: absent: Bradycardia, Tachycardia - GI/Abdominal Exam GI & Abdominal Exam: Distended (mild), Soft. absent: Firm, Guarding, Rebound, Rigid, Tenderness Additional comments: tympanic - Rectal Exam Rectal Exam: NORMAL INSPECTION. absent: Black Stool, Bloody Stool, Fecal Impact ion - Extremities Exam Extremities exam: Positive for: normal inspection - Back Exam Back exam: NORMAL INSPECTION - Neurological Exam Neurological exam: Alert - Psychiatric Exam Psychiatric exam: Normal Affect, Normal Mood - Skin Skin Exam: Dry, Intact, Normal Color, Warm Results - Vital Signs Recent Vital Signs: Last Vital Signs Temp 97.4 F L 07/21/18 09:05 Pulse 76 07/21/18 09:05 Resp 18 07/21/18 09:05 BP 173/97 H 07/21/18 09:05 Pulse Ox 95 07/21/18 09:05 - Labs Result Diagrams: 07/20/18 19:59 07/20/18 19:59 Labs: Laboratory Results - last 24 hr 07/20/18 07/20/18 19:59 19:59 WBC 4.9 D RBC 3.64 Hgb 14.0 D Hct 41.0 MCV 112.6 H MCH 38.5 H MCHC 34.1 RDW 12.8 Plt Count 257 MPV 9.3 Neut % (Auto) 57.8 Lymph % (Auto) 27.9 [place] % (Auto) 13.1 H Eos % (Auto) 0.8 L Baso % (Auto) 0.4 Lymph # (Auto) 1.4 [place] # (Auto) 0.6 Eos # (Auto) 0.0 Baso # (Auto) 0.02 Absolute Neuts (auto) 2.81 Sodium 128 L Potassium 4.6 Chloride 96 L Carbon Dioxide 27 Anion Gap 10 BUN 14 Creatinine 0.4 L Est GFR ( Amer) > 60 Est GFR (Non-Af Amer) > 60 Random Glucose 124 H Calcium 7.8 L Total Bilirubin 0.8 AST 38 H ALT 28 Alkaline Phosphatase 152 H D Total Protein 5.6 L Albumin 2.9 L Globulin 2.7 Albumin/Globulin Ratio 1.1 Lipase 140 - Imaging and Cardiology CT scan - abdomen Status: Image reviewed by me, Report reviewed by me (vRADS (official report pending)) Assessment & Plan - Assessment and Plan (Free Text) Assessment: 82 y/o F w/ abd pain likely 2/2 constipation vs (p)SBO Plan: - f/u official CTAP read - non-narcotic pain management - monitor bowel fxn - fleet enema - dulcolax RI - PT/OT Pt seen, examined, and discussed w/ Dr. Ritesh Gonzalez PGY3
--- NOTE | 2018-07-21 11:57 | CT ---
Date of service: 07/20/2018 PROCEDURE: CT Abdomen and Pelvis with contrast HISTORY: abd pain COMPARISON: CT abdomen and pelvis with IV contrast performed 05/14/18 TECHNIQUE: Contrast dose: 95 mL Omnipaque 350 IV Radiation dose: Total exam DLP = 310.09 mGy-cm. This CT exam was performed using one or more of the following dose reduction techniques: Automated exposure control, adjustment of the mA and/or kV according to patient size, and/or use of iterative reconstruction technique. FINDINGS: LOWER THORAX: Bibasilar atelectasis/infiltrates. No visible pleural effusion or pneumothorax. Coronary artery calcifications. Mild cardiomegaly. Small hiatal hernia. LIVER: Unremarkable. GALLBLADDER AND BILE DUCTS: Contracted gallbladder. PANCREAS: Unremarkable. SPLEEN: Unremarkable. ADRENALS: Bilateral adrenal gland hyperplasia. KIDNEYS AND URETERS: The kidneys enhance symmetrically. No hydronephrosis or obstructing calculus identified. 11 mm left renal hypodensity VASCULATURE: No aortic aneurysm. Atherosclerotic calcifications of the aorta. BOWEL: Stomach is nondistended. Evidence of dense calcification of the gallbladder fundus. Lack of oral contrast limits evaluation for bowel pathology. Fluid-filled small bowel loops appearing borderline distended with more distal loops decompressed. Question fecalization of small bowel contents. Diffuse moderate to severe constipation. APPENDIX: The appendix is not identified. No secondary signs of acute appendicitis. PERITONEUM: No significant free fluid. No definite free air. LYMPH NODES: No bulky adenopathy identified. BLADDER: Urinary bladder distension. REPRODUCTIVE: Atrophic uterus. BONES: Diffuse osseous demineralization. Degenerative changes. Scoliosis. Multilevel compression fracture deformities. OTHER FINDINGS: None. IMPRESSION: Fluid-filled small bowel loops appearing borderline distended with more distal loops decompressed. Question fecalization of small bowel contents. Appearance suspected secondary to enteritis, however correlate clinically for possibility of early/intermittent obstruction. Diffuse moderate to severe constipation. Evidence of dense calcification at the gallbladder fundus. Urinary bladder distension. Diffuse osseous demineralization. Degenerative changes. Scoliosis. Multilevel compression fracture deformities. Bibasilar atelectasis/infiltrates. Additional findings as above. Preliminary impression was provided by [employer].
--- NOTE | 2018-07-21 14:14 | CARD ---
APPROVED REPORT Date of service: 07/20/2018 EKG Measurement Heart [id number] <Conclusion> Sinus tachycardia Left axis deviation Anterolateral infarct, age undetermined Abnormal ECG
[2018-07-22] MEDS: HYDROmorphone 0.5 mg/0.5 ml ISec IVP PRN ×6 (03:21→23:00)
[2018-07-22] MEDS ORDERED: Morphine 2 mg/ml ISec IVP STA (06:07)
--- NOTE | 2018-07-22 09:17 | CP.PCM.PN ---
Subjective - Date & Time of Evaluation Date of Evaluation: 07/22/18 Time of Evaluation: 09:13 - Subjective Subjective: General Surgery Dr. Awad Pt seen and examined @bedside. No acute events overnight. Pt denies abd pain, N/V. tolerating CLD. small BM following fleets enema. Objective - Vital Signs/Intake and Output Vital Signs (last 24 hours): Temp Pulse Resp BP Pulse Ox 97.8 F 76 20 153/83 H 97 07/22/18 08:32 07/22/18 08:32 07/22/18 08:32 07/22/18 08:32 07/22/18 08:32 Intake and Output: 07/22/18 07/22/18 06:59 18:59 Intake Total 1000 Balance 1000 - Medications Medications: Current Medications Atorvastatin Calcium (Lipitor) 10 mg PO DIN [facility] Last Admin: 07/21/18 18:54 Dose: 10 mg Bisacodyl (Dulcolax) 10 mg RC DAILY [facility] Carvedilol (Coreg) 3.125 mg PO DAILY [facility] Last Admin: 07/21/18 10:40 Dose: Not Given Cyanocobalamin (Vitamin B12 1000 Mcg Tab) 1,000 mcg PO DAILY [facility] Last Admin: 07/21/18 10:41 Dose: 1,000 mcg Docusate Sodium (Colace) 100 mg PO DAILY [facility] Last Admin: 07/21/18 10:39 Dose: 100 mg Hydromorphone HCl (Dilaudid) 0.5 mg IVP Q4H PRN PRN Reason: Pain, moderate (4-7) Last Admin: 07/22/18 07:43 Dose: 0.5 mg Sodium Chloride (Sodium Chloride 0.9%) 1,000 mls @ 100 mls/hr IV .Q10H [facility] Last Admin: 07/21/18 18:54 Dose: 100 mls/hr Levothyroxine Sodium (Synthroid) 150 mcg PO DAILY [facility] Last Admin: 07/21/18 10:41 Dose: 150 mcg Pantoprazole Sodium (Protonix Ec Tab) 40 mg PO DAILY [facility] Last Admin: 07/21/18 10:40 Dose: 40 mg Sennosides (Senokot Tab) 8.6 mg PO DAILY [facility] - Labs Labs: 07/20/18 19:59 07/20/18 19:59 - Constitutional Appears: Non-toxic, No Acute Distress - Head Exam Head Exam: NORMAL INSPECTION - Eye Exam Eye Exam: Normal appearance - ENT Exam ENT Exam: Mucous Membranes Moist - Respiratory Exam Respiratory Exam: NORMAL BREATHING PATTERN. absent: Accessory Muscle Use, Respiratory Distress - Cardiovascular Exam Cardiovascular Exam: absent: Bradycardia, Tachycardia - GI/Abdominal Exam GI & Abdominal Exam: Distended (mild), Soft. absent: Firm, Guarding, Rigid, Tenderness, Rebound - Extremities Exam Extremities Exam: Normal Inspection - Neurological Exam Neurological Exam: Alert, Awake - Psychiatric Exam Psychiatric exam: Normal Affect, Normal Mood - Skin Skin Exam: Dry, Intact, Normal Color, Warm Assessment and Plan - Assessment and Plan (Free Text) Assessment: 82 y/o F w/ improved abd pain likely 2/2 constipation Plan: - cont colace, dulcolax - added Senna - monitor bowel fxn - ADAT - non-narcotic pain management - encourage OOB to chair - PT/OT - DVT PPx Pt discussed w/ Dr. Ritesh Gonzalez PGY3
[2018-07-22] MEDS: Pantoprazole 40 mg EC Tab PO SCH (10:23)
[2018-07-22] MEDS: Levothyroxine 150 MCG TAB PO SCH (10:23)
--- NOTE | 2018-07-22 16:15 | HP ---
DATE OF EXAM: 07/22/2018 HISTORY OF PRESENT ILLNESS: The patient is an 82-year-old female who was admitted today after several days of increasing abdominal pain. The patient is known to have constipation, for which the patient frequently takes laxatives; however, this pain became quite diffuse and severe. The patient was crying out in pain; therefore, she was brought to the emergency room by her daughter, is evaluated and admitted. PAST MEDICAL HISTORY: The patient is known to have a past medical history positive for hypertension, status post myocardial infarction, history of hypothyroidism, osteoarthritis and gastroesophageal reflux disease. MEDICATIONS: Medications at the time of admission included Coreg, Levoxyl, simvastatin, Colace, vitamin B12 and lansoprazole. SOCIAL HISTORY: The patient never smoked. She is a nonalcoholic drinker. ALLERGIES: SHE IS KNOWN TO BE ALLERGIC TO PENICILLIN. REVIEW OF SYSTEMS: Otherwise unremarkable. PHYSICAL EXAMINATION GENERAL: The patient is awake, alert and oriented. HEAD, EYES, EARS, NOSE AND THROAT: Unremarkable. NECK: Supple with no lymphadenopathy. No goiter. LUNGS: Clear to auscultation and percussion. HEART: Regular. No murmurs are appreciated. ABDOMEN: Soft, round. Bowel sounds are slightly decreased. It is surprisingly nontender to palpation. EXTREMITIES: Free of cyanosis, clubbing or edema. NEUROLOGIC: The patient is awake, alert and oriented. She speaks only Korean; however, her conversation is lucid. CAT scan of the abdomen showed some small loops of bowel in the left abdomen, slightly prominent and fluid filled with enhancement of the wall measuring up to 3.6 cm. There is possible fecalization of some more distal loops of small bowel. There is constipation in the colon, which appears slightly worse currently than on a study that was done last May. The bladder is distended. LABORATORY STUDIES: Reveal the white blood cell count is normal at 4.9, hemoglobin and hematocrit are 14.0 and 41.0 respectively, platelet count is 257. Serum chemistry showed depressed sodium of 128, potassium is 4.6, BUN and creatinine are 14 and 0.4 respectively. GFR is greater than 60. Nonfasting glucose is 124. The patient is admitted, consultation from Dr. Awad, the surgeon; Dr. Gibbs, the senior policy associate as well as Dr. Umana, the stretcher helper because of a cardiac history are requested. The patient will be continuing her medications from home. She is also placed on n.p.o. with IV fluids. Mario Alves MD
[2018-07-22] MEDS: POLYETHYLENE GLYCOL 3350 17 GM/Dose PACKET PO SCH (17:38)
--- NOTE | 2018-07-22 22:58 | CP.PCM.PN ---
Subjective - Date & Time of Evaluation Date of Evaluation: 07/22/18 Time of Evaluation: 15:00 - Subjective Subjective: Patient comfortable tolerating diet. Patient did have Fleet Enema with some bowel movement. Objective - Vital Signs/Intake and Output Vital Signs (last 24 hours): Temp Pulse Resp BP Pulse Ox 97.6 F 76 20 158/94 H 97 07/22/18 16:54 07/22/18 16:54 07/22/18 16:54 07/22/18 16:54 07/22/18 16:54 Intake and Output: 07/22/18 07/23/18 18:59 06:59 Intake Total 1200 960 Balance 1200 960 - Medications Medications: Current Medications Aspirin (Aspirin Chewable) 81 mg PO DAILY [facility] Last Admin: 07/22/18 15:16 Dose: 81 mg Atorvastatin Calcium (Lipitor) 10 mg PO DIN [facility] Last Admin: 07/22/18 17:38 Dose: 10 mg Bisacodyl (Dulcolax) 10 mg RC DAILY [facility] Last Admin: 07/22/18 10:23 Dose: 10 mg Carvedilol (Coreg) 3.125 mg PO DAILY [facility] Last Admin: 07/22/18 10:24 Dose: 3.125 mg Cyanocobalamin (Vitamin B12 1000 Mcg Tab) 1,000 mcg PO DAILY [facility] Last Admin: 07/22/18 10:23 Dose: 1,000 mcg Docusate Sodium (Colace) 100 mg PO DAILY [facility] Last Admin: 07/22/18 10:23 Dose: 100 mg Famotidine (Pepcid) 20 mg PO 1000,2200 [facility] Last Admin: 07/22/18 20:59 Dose: 20 mg Hydromorphone HCl (Dilaudid) 0.5 mg IVP Q4H PRN PRN Reason: Pain, moderate (4-7) Last Admin: 07/22/18 18:52 Dose: 0.5 mg Sodium Chloride (Sodium Chloride 0.9%) 1,000 mls @ 100 mls/hr IV .Q10H [facility] Last Admin: 07/21/18 18:54 Dose: 100 mls/hr Levothyroxine Sodium (Synthroid) 150 mcg PO DAILY [facility] Last Admin: 07/22/18 10:23 Dose: 150 mcg Losartan Potassium (Cozaar) 12.5 mg PO DAILY [facility] Last Admin: 07/22/18 15:16 Dose: 12.5 mg Pantoprazole Sodium (Protonix Ec Tab) 40 mg PO DAILY [facility] Last Admin: 07/22/18 10:23 Dose: 40 mg Polyethylene Glycol (Miralax) 17 gm PO BID [facility] Last Admin: 07/22/18 17:38 Dose: 17 gm Sennosides (Senokot Tab) 8.6 mg PO DAILY [facility] Last Admin: 07/22/18 10:23 Dose: 8.6 mg - Labs Labs: 07/20/18 19:59 07/20/18 19:59 - Constitutional Appears: Well, No Acute Distress - Head Exam Head Exam: ATRAUMATIC, NORMOCEPHALIC - Eye Exam Eye Exam: EOMI. absent: Scleral icterus - Neck Exam Neck Exam: Full ROM. absent: Lymphadenopathy - Respiratory Exam Respiratory Exam: Accessory Muscle Use, NORMAL BREATHING PATTERN. absent: Stridor - Cardiovascular Exam Cardiovascular Exam: REGULAR RHYTHM, +S1. absent: JVD - GI/Abdominal Exam GI & Abdominal Exam: Soft, Normal Bowel Sounds. absent: Tenderness, Organomegaly Assessment and Plan - Assessment and Plan (Free Text) Assessment: This 82-year-old patient with a history of coronary artery disease hypothyroidism hypertension dyslipidemia was admitted with abdominal pain CT scan showed a possible partial small bowel obstruction. The CT also found to have a large amount of stool in the colon patient did have her left Fleet Enema yesterday with the moderate response. Tolerating diet. 1. Slowly advance the diet 2. Continue MiraLAX Further evaluation based on the clinical course
--- NOTE | 2018-07-22 23:52 | CP.PCM.PN ---
Subjective - Date & Time of Evaluation Date of Evaluation: 07/22/18 Time of Evaluation: 23:52 - Subjective Subjective: Patient was seen at bedside. She is asleep now. She was seen because pesticide use medical coordinator had asked me to co-sign order for fleet enema and Toradol for diffuse abdominal pain from constipation. Earlier in the day time she had received Tap water enema with little help.Had last Bowel movement 2 days ago.Also , had received dulcolax and Senna. Medical record was reviewed. This 82 year old woman was admitted with increasing abdominal pain, constipation. Has PMH of HTN,S/P PA,Hypothyroidism, Osteoarthritis, GERD. Objective - Vital Signs/Intake and Output Vital Signs (last 24 hours): Temp Pulse Resp BP Pulse Ox 97.6 F 76 20 158/94 H 97 07/22/18 16:54 07/22/18 16:54 07/22/18 16:54 07/22/18 16:54 07/22/18 16:54 Intake and Output: 07/22/18 07/23/18 18:59 06:59 Intake Total 1200 960 Balance 1200 960 - Medications Medications: Current Medications Aspirin (Aspirin Chewable) 81 mg PO DAILY [facility] Last Admin: 07/22/18 15:16 Dose: 81 mg Atorvastatin Calcium (Lipitor) 10 mg PO DIN [facility] Last Admin: 07/22/18 17:38 Dose: 10 mg Bisacodyl (Dulcolax) 10 mg RC DAILY [facility] Last Admin: 07/22/18 10:23 Dose: 10 mg Carvedilol (Coreg) 3.125 mg PO DAILY [facility] Last Admin: 07/22/18 10:24 Dose: 3.125 mg Cyanocobalamin (Vitamin B12 1000 Mcg Tab) 1,000 mcg PO DAILY [facility] Last Admin: 07/22/18 10:23 Dose: 1,000 mcg Docusate Sodium (Colace) 100 mg PO DAILY [facility] Last Admin: 07/22/18 10:23 Dose: 100 mg Famotidine (Pepcid) 20 mg PO 1000,2200 [facility] Last Admin: 07/22/18 20:59 Dose: 20 mg Hydromorphone HCl (Dilaudid) 0.5 mg IVP Q4H PRN PRN Reason: Pain, moderate (4-7) Last Admin: 07/22/18 23:00 Dose: 0.5 mg Sodium Chloride (Sodium Chloride 0.9%) 1,000 mls @ 100 mls/hr IV .Q10H [facility] Last Admin: 07/21/18 18:54 Dose: 100 mls/hr Levothyroxine Sodium (Synthroid) 150 mcg PO DAILY [facility] Last Admin: 07/22/18 10:23 Dose: 150 mcg Losartan Potassium (Cozaar) 12.5 mg PO DAILY [facility] Last Admin: 07/22/18 15:16 Dose: 12.5 mg Pantoprazole Sodium (Protonix Ec Tab) 40 mg PO DAILY [facility] Last Admin: 07/22/18 10:23 Dose: 40 mg Polyethylene Glycol (Miralax) 17 gm PO BID [facility] Last Admin: 07/22/18 17:38 Dose: 17 gm Sennosides (Senokot Tab) 8.6 mg PO DAILY [facility] Last Admin: 07/22/18 10:23 Dose: 8.6 mg - Labs Labs: 07/20/18 19:59 07/20/18 19:59 - Constitutional Appears: Well, No Acute Distress - Head Exam Head Exam: ATRAUMATIC, NORMAL INSPECTION, NORMOCEPHALIC - Eye Exam Eye Exam: Normal appearance - ENT Exam ENT Exam: Normal External Ear Exam - Neck Exam Neck Exam: Normal Inspection - Respiratory Exam Respiratory Exam: NORMAL BREATHING PATTERN - Cardiovascular Exam Cardiovascular Exam: absent: JVD - GI/Abdominal Exam GI & Abdominal Exam: absent: Distended - Rectal Exam Rectal Exam: Deferred - Exam Additional comments: Deferred. - Extremities Exam Extremities Exam: Normal Inspection - Back Exam Back Exam: NORMAL INSPECTION - Neurological Exam Additional comments: Asleep. - Psychiatric Exam Additional comments: Asleep. - Skin Skin Exam: Normal Color Assessment and Plan - Assessment and Plan (Free Text) Assessment: Constipation. Abdominal pain. HTN. History PA Hypothyroidism OA GERD Plan: Fleet enema. Toradol as ordered. Continue present management.
[2018-07-23] MEDS: HYDROmorphone 0.5 mg/0.5 ml ISec IVP PRN ×5 (04:00→20:48)
--- NOTE | 2018-07-23 05:52 | CON ---
DATE: 07/22/2018 REASON FOR CONSULTATION: Sinus tachycardia and evidence of anterolateral infarct on the EKG. HISTORY OF PRESENT ILLNESS: The patient is an 82 years old female who has a history of coronary artery disease with history of TX twice in the past, was admitted because of diffuse abdominal pain and questionable small bowel obstruction. The patient was evaluated by the Surgical team and conservative medical approach was pursued, and the patient had bowel movement after Dulcolax Suppository and a Fleet Enema. She denies any chest pain at this time. SOCIAL HISTORY: Nonsmoker, nondrinker. MEDICATIONS: Colace 100 mg daily, Coreg 3.125 mg twice a day, Dilaudid 0.5 mg intravenously every four hours p.r.n., Dulcolax 10 mg Suppository daily, Lipitor 10 mg once a day, Protonix 20 mg p.o. once a day, normal saline 100 mL/hour, Synthroid 150 mcg daily, vitamin B12 1 mg p.o. daily. REVIEW OF SYSTEMS: The patient denies any nausea or vomiting at this time and denies any chest pain. PAST MEDICAL HISTORY: History of coronary artery disease with a history of TX reported twice in the past according to emergency room team. PHYSICAL EXAMINATION: GENERAL: The patient is an elderly female, who does not appear to be in any distress. VITAL SIGNS: Blood pressure 153/83, heart rate 76, temperature 97.8, respirations 20. HEENT: Normocephalic. CHEST: Clear. HEART: S1, S2 regular. ABDOMEN: Mildly distended with diminished bowel sounds. No tenderness, guarding, or rebound tenderness. EXTREMITIES: No edema. LABORATORY DATA: SMA-7, sodium 128, potassium 4.6, chloride 96, CO2 of 27, glucose 124, BUN 14, creatinine 0.4. Admitting hemoglobin and hematocrit 14 and 41, white count 4.9, platelet count 257,000. Abdomen and pelvis CT scan with IV contrast only revealed fluid-filled small bowel loops appearing distended with more distal loops decompressed, questionable fecalization of the small bowel contents. Appearance suspects secondary to enteritis, however, correlate clinically for possibility of any intermittent obstruction. Diffuse [id number] constipation. Evidence of dense calcification at the gallbladder fundus. Diffuse osseous demineralization. Degenerative change, scoliosis. Multilevel compression fracture and deformities. EKG revealed sinus tachycardia at a rate of 101, left axis deviation, anterolateral infarct, age undetermined. An echocardiographic study performed in 05/2018 revealed ejection fraction in the range of 45 to 50% and mild pulmonary hypertension, [id number] hypokinesis in the apical anterior wall, and mild mitral insufficiency. ASSESSMENT: 1. Resolving small bowel obstruction. 2. History of coronary artery disease with history of myocardial infarction some 20 years ago. 3. Mildly depressed left ventricular systolic function. 4. Mild mitral insufficiency. 5. Mild pulmonary hypertension. 6. Segmental hypokinesis on the echo and anterolateral infarct noted by EKG. 7. Hyponatremia. RECOMMENDATIONS: Continue current conservative medical approach including Coreg 3.125 mg daily, Lipitor 10 mg once a day. Start aspirin at 81 mg once a day, there is no contraindication. Continue Synthroid at 150 mcg once a day. Consider DVT prophylaxis with Lovenox at 30 mg daily and we will also start Cozaar at 12.5 mg daily. Tadeo Willis MD
--- NOTE | 2018-07-23 08:10 | CP.PCM.PN ---
Subjective - Date & Time of Evaluation Date of Evaluation: 07/23/18 Time of Evaluation: 08:07 - Subjective Subjective: General Surgery Dr. Awad Pt seen and examined @bedside. No acute events overnight. Pt had Fleets and Soap suds enema yesterday; pt did not tolerate well. No BM. Pt sleeping on rounds. no nausea/vomiting. tolerating CLD. Objective - Vital Signs/Intake and Output Vital Signs (last 24 hours): Temp Pulse Resp BP Pulse Ox 97.6 F 76 20 158/94 H 97 07/22/18 16:54 07/22/18 16:54 07/22/18 16:54 07/22/18 16:54 07/22/18 16:54 Intake and Output: 07/23/18 07/23/18 06:59 18:59 Intake Total 960 Output Total 0 Balance 960 - Medications Medications: Current Medications Aspirin (Aspirin Chewable) 81 mg PO DAILY [facility] Last Admin: 07/22/18 15:16 Dose: 81 mg Atorvastatin Calcium (Lipitor) 10 mg PO DIN [facility] Last Admin: 07/22/18 17:38 Dose: 10 mg Bisacodyl (Dulcolax) 10 mg RC DAILY [facility] Last Admin: 07/22/18 10:23 Dose: 10 mg Carvedilol (Coreg) 3.125 mg PO DAILY [facility] Last Admin: 07/22/18 10:24 Dose: 3.125 mg Cyanocobalamin (Vitamin B12 1000 Mcg Tab) 1,000 mcg PO DAILY [facility] Last Admin: 07/22/18 10:23 Dose: 1,000 mcg Docusate Sodium (Colace) 100 mg PO DAILY [facility] Last Admin: 07/22/18 10:23 Dose: 100 mg Famotidine (Pepcid) 20 mg PO 1000,2200 [facility] Last Admin: 07/22/18 20:59 Dose: 20 mg Hydromorphone HCl (Dilaudid) 0.5 mg IVP Q4H PRN PRN Reason: Pain, moderate (4-7) Last Admin: 07/23/18 04:00 Dose: 0.5 mg Sodium Chloride (Sodium Chloride 0.9%) 1,000 mls @ 100 mls/hr IV .Q10H [facility] Last Admin: 07/21/18 18:54 Dose: 100 mls/hr Levothyroxine Sodium (Synthroid) 150 mcg PO DAILY [facility] Last Admin: 07/22/18 10:23 Dose: 150 mcg Losartan Potassium (Cozaar) 12.5 mg PO DAILY [facility] Last Admin: 07/22/18 15:16 Dose: 12.5 mg Pantoprazole Sodium (Protonix Ec Tab) 40 mg PO DAILY [facility] Last Admin: 07/22/18 10:23 Dose: 40 mg Polyethylene Glycol (Miralax) 17 gm PO BID [facility] Last Admin: 07/22/18 17:38 Dose: 17 gm Sennosides (Senokot Tab) 8.6 mg PO DAILY [facility] Last Admin: 07/22/18 10:23 Dose: 8.6 mg - Labs Labs: 07/20/18 19:59 07/20/18 19:59 - Constitutional Appears: Non-toxic, No Acute Distress - Head Exam Head Exam: NORMAL INSPECTION - Eye Exam Eye Exam: Normal appearance - ENT Exam ENT Exam: Mucous Membranes Moist - Respiratory Exam Respiratory Exam: NORMAL BREATHING PATTERN. absent: Accessory Muscle Use, Respiratory Distress - Cardiovascular Exam Cardiovascular Exam: absent: Bradycardia, Tachycardia - GI/Abdominal Exam GI & Abdominal Exam: Distended (mild), Soft. absent: Tenderness - Extremities Exam Extremities Exam: Normal Inspection - Neurological Exam Neurological Exam: absent: Awake (sleeping) - Skin Skin Exam: Dry, Normal Color, Warm Assessment and Plan - Assessment and Plan (Free Text) Assessment: 82 y/o F w/ continued abd distention and obstipation, though improved abd pain Plan: - f/u obstructive series - recommend non-narcotic pain medication - cont bowel regimen - con CLD - f/u GI for potential colonoscopy for obstipation - encourage OOB to chair/Amb - PT/OT Pt discussed w/ Dr. Ritesh Gonzalez PGY3
[2018-07-23] MEDS ORDERED: Magnesium Citrate Oral SOL (300 ml) PO ONE (08:20)
[2018-07-23 09:05] LABS: BASO # 0.01 K/mm3 (0.0-2.0); BASO % 0.3 % (0.0-3.0); EOS # 0.1 (0.0-0.7); LYMPH # 1.1 (1.2-3.4); LYMPH % 36.8 % (22.0-35.0); MEAN CORPUSCULAR HEMOGLOBIN 37.9 pg (25.0-35.0); MEAN CORPUSCULAR HGB CONC 32.6 g/dl (31.0-37.0); MONO # 0.5 (0.1-0.6); MONO % 15.5 % (1.0-6.0); RBC 3.01 10^6/uL (3.5-6.1)
[2018-07-23 09:13] LABS: HEMOGLOBIN 11.4 g/dL (12.0-16.0); MEAN CELL VOLUME 116.3 fl (80.0-105.0)
[2018-07-23 09:44] LABS: ALB/GLOB RATIO 0.9 (1.1-1.8); ALBUMIN 2.2 g/dL (3.0-4.8); ALT/SGPT 29 U/L (7-56); AST/SGOT 32 U/L (14-36); BLOOD UREA NITROGEN 18 mg/dL (7-21); CALCIUM 6.9 mg/dL (8.4-10.5); GFR NON-AFRICAN AMERICAN > 60
[2018-07-23] MEDS: POLYETHYLENE GLYCOL 3350 17 GM/Dose PACKET PO SCH ×2 (10:23→17:17)
[2018-07-23] MEDS: Levothyroxine 150 MCG TAB PO SCH (10:23)
[2018-07-23] MEDS: Pantoprazole 40 mg EC Tab PO SCH (10:23)
--- NOTE | 2018-07-23 11:24 | RAD ---
Date of service: 07/23/2018 HISTORY: Constipation COMPARISON: CT abdomen and pelvis from 07/20/2018. TECHNIQUE: 1 view obtained. FINDINGS: BOWEL: There is large amount of stool in the ascending and proximal transverse colon. There are gas filled normal caliber small bowel loops and gas in the stomach and left hemicolon. There are multiple differential air-fluid levels BONES: Severe diffuse bone demineralization. OTHER FINDINGS: There are multiple phleboliths in the pelvis. IMPRESSION: Constipation. Multiple differential air-fluid levels could be related to enteritis ileus or bowel obstruction. Clinical follow-up is advised.
[2018-07-23] MEDS: Magnesium Chloride 64 mg ER Tab PO SCH (12:21)
--- NOTE | 2018-07-23 14:05 | RAD ---
Date of service: 07/23/2018 HISTORY: Routine COMPARISON: 05/15/2018. FINDINGS: LUNGS: There are low lung volumes. There is confluent airspace disease in the lower lobes. PLEURA: No pleural effusions or pneumothorax. CARDIOVASCULAR: Mild cardiomegaly. No aortic atherosclerotic calcifications present. OSSEOUS STRUCTURES: Within normal limits for the patient's age. VISUALIZED UPPER ABDOMEN: Normal. OTHER FINDINGS: None. IMPRESSION: Confluent airspace disease in the lower lobe may represent subsegmental atelectasis or pneumonia. Aspiration pneumonitis is a consideration. Follow-up after medical management is recommended to ensure complete resolution. Low lung volumes may be related to poor inspiratory effort.
--- NOTE | 2018-07-23 15:25 | PN ---
DATE: 07/23/2018 SUBJECTIVE: The patient is an 82-year-old female who was admitted after several days of increasing abdominal pain. CAT scan was performed which showed constipation. She was evaluated by Dr. Gibbs, the paper handler, and felt that constipation was the main cause of her discomfort. The patient is known to have a past medical history positive for hypertension, status post myocardial infarction, history of hyperthyroidism, osteoarthritis, and gastroesophageal reflux disease. The patient had received MiraLax, Fleet enema, glycerine suppositories with only minimal results. I have ordered a citrate of magnesia to be given today to improve the patient's evacuation. When seen, she is lying in bed comfortably. Family members are at bedside. PHYSICAL EXAMINATION: VITAL SIGNS: Stable. ABDOMEN: Soft and nontender. PLAN: We will continue to follow the patient closely. Case to be discussed with Dr. Gibbs, the paper handler. Mario Alves MD
[2018-07-23 16:27] VITALS: PULSE 68; O2SAT 98
[2018-07-23] MEDS: Sodium Chloride 0.9% 1,000 ML IV SCH (17:16)
--- NOTE | 2018-07-23 20:09 | PN ---
DATE: 07/23/2018 SUBJECTIVE: The patient is complaining of pain, but could not point to where her pain is. She does not appear to be in any respiratory distress. The patient was by her daughter this morning. The patient had small bowel movement according to her nurse today. PHYSICAL EXAMINATION VITAL SIGNS: Blood pressure 129/79, heart rate 79, temperature 98, and respirations 20. HEENT: Normocephalic. CHEST: Clear. HEART: S1 and S2 regular. EXTREMITIES: No edema. LABORATORY DATA: Today's hemoglobin and hematocrit 11.4 and 35.0, white count 3.0 and platelet count 169,000. Today's SMA-7: Sodium 130, potassium 3.8, chloride 104, CO2 of 20, glucose 89, BUN 18, creatinine 0.8, and calcium is below normal at 6.9. Today's portable chest x-ray revealed confluent airspace disease in the lower lobe, may represent subsegmental atelectasis or pneumonia. Aspiration pneumonitis is a consideration. Low lung volumes. ASSESSMENT: 1. Resolving small bowel obstruction. 2. History of coronary artery disease in the remote past. The patient did report myocardial infarction some 20 years ago. 3. Mildly depressed left ventricular systolic function. 4. Mild mitral insufficiency. 5. Mild pulmonary hypertension. 6. Hyponatremia. 7. Rule out pneumonia. RECOMMENDATIONS: Continue current aspirin 81 mg once a day, Coreg 3.125 mg twice a day, Cozaar 12.5 mg once a day, Lipitor 10 mg once a day, Slow-Mag at 64 mg once a day, Synthroid at 0.50 mcg once a day. Consider obtaining a chest CT scan without contrast. Tadeo Willis MD
--- NOTE | 2018-07-24 00:28 | CP.PCM.PN ---
Subjective - Date & Time of Evaluation Date of Evaluation: 07/23/18 Time of Evaluation: 10:00 - Subjective Subjective: Patient was comfortable still complaining of some abdominal discomfort daughter was at bedside at the time of examination Objective - Vital Signs/Intake and Output Vital Signs (last 24 hours): Temp Pulse Resp BP Pulse Ox 98.0 F 68 18 120/80 98 07/23/18 16:00 07/23/18 16:00 07/23/18 16:00 07/23/18 16:00 07/23/18 16:00 Intake and Output: 07/23/18 07/24/18 18:59 06:59 Intake Total 420 Balance 420 - Medications Medications: Current Medications Aspirin (Aspirin Chewable) 81 mg PO DAILY [facility] Last Admin: 07/23/18 10:23 Dose: 81 mg Atorvastatin Calcium (Lipitor) 10 mg PO DIN [facility] Last Admin: 07/23/18 17:17 Dose: 10 mg Bisacodyl (Dulcolax) 10 mg RC DAILY [facility] Last Admin: 07/23/18 10:23 Dose: 10 mg Carvedilol (Coreg) 3.125 mg PO DAILY [facility] Last Admin: 07/23/18 10:24 Dose: 3.125 mg Cyanocobalamin (Vitamin B12 1000 Mcg Tab) 1,000 mcg PO DAILY [facility] Last Admin: 07/23/18 10:23 Dose: 1,000 mcg Docusate Sodium (Colace) 100 mg PO DAILY [facility] Last Admin: 07/23/18 10:23 Dose: 100 mg Famotidine (Pepcid) 20 mg PO 1000,2200 [facility] Last Admin: 07/23/18 21:11 Dose: 20 mg Hydromorphone HCl (Dilaudid) 0.5 mg IVP Q4H PRN PRN Reason: Pain, moderate (4-7) Last Admin: 07/23/18 20:48 Dose: 0.5 mg Sodium Chloride (Sodium Chloride 0.9%) 1,000 mls @ 100 mls/hr IV .Q10H [facility] Last Admin: 07/23/18 17:16 Dose: 100 mls/hr Levothyroxine Sodium (Synthroid) 150 mcg PO DAILY [facility] Last Admin: 07/23/18 10:23 Dose: 150 mcg Losartan Potassium (Cozaar) 12.5 mg PO DAILY [facility] Last Admin: 07/23/18 10:23 Dose: 12.5 mg Magnesium Chloride (Slow-Mag) 64 mg PO DAILY [facility] Last Admin: 07/23/18 12:21 Dose: 64 mg Pantoprazole Sodium (Protonix Ec Tab) 40 mg PO DAILY [facility] Last Admin: 07/23/18 10:23 Dose: 40 mg Polyethylene Glycol (Miralax) 17 gm PO BID [facility] Last Admin: 07/23/18 17:17 Dose: 17 gm Sennosides (Senokot Tab) 8.6 mg PO DAILY [facility] Last Admin: 07/23/18 10:23 Dose: 8.6 mg - Labs Labs: 07/23/18 08:30 07/23/18 08:30 - Head Exam Head Exam: ATRAUMATIC, NORMOCEPHALIC - Eye Exam Eye Exam: EOMI, PERRL. absent: Scleral icterus - ENT Exam ENT Exam: Mucous Membranes Moist - Neck Exam Neck Exam: Full ROM. absent: Lymphadenopathy - Cardiovascular Exam Cardiovascular Exam: REGULAR RHYTHM, +S1, +S2. absent: JVD - GI/Abdominal Exam GI & Abdominal Exam: Soft. absent: Tenderness, Mass - Neurological Exam Neurological Exam: Alert, Awake, Oriented x3 Assessment and Plan - Assessment and Plan (Free Text) Assessment: p Attending/Attestation - Attestation I have personally seen and examined this patient.: Yes I have fully participated in the care of the patient.: Yes I have reviewed all pertinent clinical information, including history, physical exam and plan: Yes Notes (Text): This 82-year-old patient was admitted for abdominal pain. CT scan showed some dilated loops of small bowel and also constipation. Patient did have a Fleet enema and is been on laxatives. The plan is slowly to advance her diet. Discussed with the patient's daughter was at bedside. She is 82 years we will try conservative management now. They are not keen on any endoscopy or co lonoscopy evaluation if the agreeable can be done as an elective as an outpatient 07/24/18 00:27 07/24/18 20:17
[2018-07-24] MEDS: HYDROmorphone 0.5 mg/0.5 ml ISec IVP PRN ×2 (00:44→10:21)
[2018-07-24 08:15] VITALS: BP 148/82; RESP 20; TEMP 98.5
--- NOTE | 2018-07-24 08:35 | CP.PCM.PN ---
Subjective - Date & Time of Evaluation Date of Evaluation: 07/24/18 Time of Evaluation: 06:40 - Subjective Subjective: Awake, no distress, wanted to drink Reason for consultation and follow up:Cardiac evaluation of tachycardia,history of coronary artery disease Seen and exmined by me and Dr. Umana Objective - Vital Signs/Intake and Output Vital Signs (last 24 hours): Temp Pulse Resp BP Pulse Ox 98.5 F 68 20 148/82 98 07/24/18 08:15 07/24/18 08:15 07/24/18 08:15 07/24/18 08:15 07/24/18 08:15 Intake and Output: 07/24/18 07/24/18 06:59 18:59 Intake Total 120 Output Total 0 Balance 120 - Medications Medications: Current Medications Aspirin (Aspirin Chewable) 81 mg PO DAILY [facility] Last Admin: 07/23/18 10:23 Dose: 81 mg Atorvastatin Calcium (Lipitor) 10 mg PO DIN [facility] Last Admin: 07/23/18 17:17 Dose: 10 mg Bisacodyl (Dulcolax) 10 mg RC DAILY [facility] Last Admin: 07/23/18 10:23 Dose: 10 mg Carvedilol (Coreg) 3.125 mg PO DAILY [facility] Last Admin: 07/23/18 10:24 Dose: 3.125 mg Cyanocobalamin (Vitamin B12 1000 Mcg Tab) 1,000 mcg PO DAILY [facility] Last Admin: 07/23/18 10:23 Dose: 1,000 mcg Docusate Sodium (Colace) 100 mg PO DAILY [facility] Last Admin: 07/23/18 10:23 Dose: 100 mg Famotidine (Pepcid) 20 mg PO 1000,2200 [facility] Last Admin: 07/23/18 21:11 Dose: 20 mg Hydromorphone HCl (Dilaudid) 0.5 mg IVP Q4H PRN PRN Reason: Pain, moderate (4-7) Last Admin: 07/24/18 00:44 Dose: 0.5 mg Sodium Chloride (Sodium Chloride 0.9%) 1,000 mls @ 100 mls/hr IV .Q10H [facility] Last Admin: 07/23/18 17:16 Dose: 100 mls/hr Levothyroxine Sodium (Synthroid) 150 mcg PO DAILY [facility] Last Admin: 07/23/18 10:23 Dose: 150 mcg Losartan Potassium (Cozaar) 12.5 mg PO DAILY [facility] Last Admin: 07/23/18 10:23 Dose: 12.5 mg Magnesium Chloride (Slow-Mag) 64 mg PO DAILY [facility] Last Admin: 07/23/18 12:21 Dose: 64 mg Pantoprazole Sodium (Protonix Ec Tab) 40 mg PO DAILY [facility] Last Admin: 07/23/18 10:23 Dose: 40 mg Polyethylene Glycol (Miralax) 17 gm PO BID [facility] Last Admin: 07/23/18 17:17 Dose: 17 gm Sennosides (Senokot Tab) 8.6 mg PO DAILY [facility] Last Admin: 07/23/18 10:23 Dose: 8.6 mg - Labs Labs: 07/23/18 08:30 07/23/18 08:30 - Constitutional Appears: Non-toxic, No Acute Distress - Head Exam Head Exam: NORMAL INSPECTION, NORMOCEPHALIC - Eye Exam Eye Exam: Normal appearance Pupil Exam: NORMAL ACCOMODATION - ENT Exam ENT Exam: Mucous Membranes Dry - Respiratory Exam Respiratory Exam: Decreased Breath Sounds, Clear to Ausculation Bilateral, NORMAL BREATHING PATTERN - Cardiovascular Exam Cardiovascular Exam: +S1, +S2 - GI/Abdominal Exam GI & Abdominal Exam: Soft, Normal Bowel Sounds - Extremities Exam Extremities Exam: Full ROM - Neurological Exam Neurological Exam: Alert, Awake - Psychiatric Exam Psychiatric exam: Normal Affect, Normal Mood - Skin Skin Exam: Dry, Normal Color Assessment and Plan - Assessment and Plan (Free Text) Assessment: An 82 year old female who came in to the ER due to abdominal pain. History of coronary artery disease , myocardial infarction, post stents 20 years ago, hypothyroidism, hypertension, hyperlipidemia. Echo done on 2018 showed LVEF 45-50%, trace AR, mild MR/TR, RVSP [address] of abdomen showed fluid filled small bowel loops appearing distended. Admitted for small possible bowel obstruction. Denies chest pain or shortness of breath. Troponin negative. Tachycardia resolved. Heart rate 60-70's. Blood pressure stable. Cardiac status stable. GI on consult. Plan: No distress Heart rate controlled Blood pressure controlled On ASA 81 mg daily, Lipitor 10 mg daily,Coreg 3.125 mg Daily Synthroid 150 mcg daily, Cozaar 12.5 mg daily, Continue current medications Continue current treatment GI on consult, work up in progress Will follow up Plan and treatment discussed with Dr. Umana
--- NOTE | 2018-07-24 09:38 | CON ---
DATE: 07/21/2018 LOCATION: The patient is in room 371, bed 1. REASON FOR CONSULTATION: Coronary artery disease, abdominal pain. HISTORY OF PRESENT ILLNESS: The patient is an 82-year-old female who admits an myocardial infarction 2 years ago and was admitted to [facility], then transferred to [facility] where the patient had a stent. Since then, the patient from cardiac point of view had been stable. Denies any chest pain, shortness of breath or palpitations. Now she is admitted with a diffuse abdominal pain. No nausea, vomiting, hematemesis or melena. The patient is lying flat in bed without any cardiac symptoms of chest pain, shortness of breath or palpitation. PAST MEDICAL HISTORY: Significant for coronary artery disease, hypothyroidism, hyperlipidemia and hypertension. The patient also was mentioning that she has dementia and GI reflux disease. PHYSICAL EXAMINATION VITAL SIGNS: Blood pressure 173/97, earlier blood pressure was 124/90, respirations 18, pulse 76, temperature 99.4. HEENT: Head is normocephalic. Eyes; pupils normal, conjunctiva normal. NECK: JVP low, carotids equal. THORAX: AP diameter normal. LUNGS: Clear. CARDIOVASCULAR: S1 and S2. No rubs. ABDOMEN: Soft. Bowel sounds are normal. EXTREMITIES: No clubbing, no cyanosis. LABORATORY DATA: WBC 4.9, hemoglobin 14, hematocrit 41, platelets 257. Sodium 158, potassium 4.6, BUN 14, creatinine 0.4, random glucose 124, AST 38, ALT 28. Total protein 5.6, albumin 2.9. EKG shows sinus rhythm, left axis deviation, septal infarct age undetermined, abnormal EKG. Chest x-ray described atelectasis on the lung bases, cardiomegaly, ectatic aorta, atherosclerotic calcification. CT abdomen and pelvis showed moderate constipation, stomach is distended with air and fluid, dependent oral contrast versus calcification of the gastric fundus, bilateral adrenal gland hypertrophy, bibasilar scarring and atelectasis. The patient had an echocardiogram on 05/15/2018, which showed left ventricle is mildly dilated. There is a borderline concentric left ventricular hypertrophy. Left ventricular ejection fraction is low normal, 45% to 50%, [id number] hypokinesis in the apical anterior wall, trace aortic regurgitation, mitral regurgitation is mild, mild tricuspid regurgitation, right ventricular systolic pressure of 35 mmHg. Trace pulmonic regurgitation. Trivial pericardial effusion. DIAGNOSES: 1. Abdominal pain, probably constipation. 2. Hyponatremia. 3. Coronary artery disease with history of stent insertion. 4. History of myocardial infarction in the past with stent insertion about 20 years ago. 5. Hypothyroidism. 6. Hyperlipidemia. 7. Hypertension. PLAN: The patient is on carvedilol 3.125 mg p.o. daily. The patient has been ordered phosphate enema once, atorvastatin 10 mg daily, Protonix 40 mg daily. The patient is getting IV fluid therapy, sodium chloride. Synthroid 150 mcg p.o. daily, The patient also has calorie malnutrition. Repeat blood work has been already ordered for tomorrow, we will follow that. Clinically cardiac status is stable. If the patient needs any gastrointestinal procedure from cardiac point of view she can go forward as a [id number] risk, but there is no absolute contraindication. Charlene Vega MD
[2018-07-24] MEDS: Levothyroxine 150 MCG TAB PO SCH (10:11)
[2018-07-24] MEDS: Pantoprazole 40 mg EC Tab PO SCH (10:12)
[2018-07-24] MEDS: POLYETHYLENE GLYCOL 3350 17 GM/Dose PACKET PO SCH ×2 (10:13→18:01)
[2018-07-24] MEDS: Magnesium Chloride 64 mg ER Tab PO SCH (10:26)
[2018-07-24] MEDS ORDERED: Potassium Chloride 20 mEq ER Tab PO ONE (11:38)
[2018-07-24] MEDS: Calcium Gluconate in NS 1 GM/50 ML BAG IV ONE ×2 (12:23→14:44)
== END 2018-07-24 21:16 | disposition home or self-care (01) ==
LOC: ED 18:57 → INTOOBSV 07-21 00:02 → ERH 07-21 00:02 → 3RSO 07-21 01:41
PROVIDERS: ADMIT Internal Medicine; ATTEND Internal Medicine
DX: K56.609 Unspecified intestinal obstruction, unspecified as to partial versus complete obstruction (principal); E87.1 Hypo-osmolality and hyponatremia; I10 Essential (primary) hypertension; K59.00 Constipation, unspecified; E03.9 Hypothyroidism, unspecified; E78.5 Hyperlipidemia, unspecified; F03.90 Unspecified dementia, unspecified severity, without behavioral disturbance, psychotic disturbance, mood disturbance, and anxiety; I25.10 Atherosclerotic heart disease of native coronary artery without angina pectoris; I27.20 Pulmonary hypertension, unspecified; K21.9 Gastro-esophageal reflux disease without esophagitis; M19.90 Unspecified osteoarthritis, unspecified site; I25.2 Old myocardial infarction; Z95.5 Presence of coronary angioplasty implant and graft; Z88.0 Allergy status to penicillin
CPT/HCPCS: 36415; 71045; 74019; 74177; 80053; 83690; 83735; 84100; 85025; 93005; 96374; 99285; G0378; J1170; J1885; J2270; J7030; Q9967